=== PATIENT | female | born 2000 | race Caucasian/White ===

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

== ENCOUNTER 2020-01-05 11:55 | Inpatient (IN) | payer OTHER ==
--- OUTSIDE RECORDS SUMMARY | 2020-01-05 12:52 | XMS ---
:2000 Author Organization [facility] Support Name Relationship Address Phone UE Unavailable Unavailable Unavailable ANGELA Unavailable Unavailable Unavailable NATHAN CUMMINS MOTHER [address] [place] [address] NATHAN CUMMINS Mother [address] [place] [address] Re-disclosure Warning The records that you are about to access may contain information from federally- assisted alcohol or drug abuse programs. If such information is present, then the following federally mandated warning applies: This information has been disclosed to you from records protected by federal confidentiality rules (42 CFR part 2). The federal rules prohibit you from making any further disclosure of this information unless further disclosure is expressly permitted by the written consent of the person to whom it pertains or as otherwise permitted by 42 CFR part 2. A general authorization for the release of medical or other information is NOT sufficient for this purpose. The Federal rules restrict any use of the information to criminally investigate or prosecute any alcohol or drug abuse patient.The records that you are about to access may contain highly sensitive health information, the redisclosure of which is protected by Article 27-F of the [facility] Public Health law. If you continue you may haveaccess to information: Regarding HIV / AIDS; Provided by facilities licensed or operated by the [facility] Office of Mental Health; or Provided by the [facility] Office for People With Developmental Disabilities. If such information is present, then the following [facility] mandated warning applies: This information has been disclosed to you from confidential records which are protected by state law. State law prohibits you from making any further disclosure of this information without the specific written consent of the person to whom it pertains, or as otherwise permitted by law. Any unauthorized further disclosure in violation of state law may result in a fine or alf sentence or both. A general authorization for the release of medical or other information is NOT sufficient authorization for further disclosure. Insurance Providers Payer name Policy type Policy ID Covered Covered alliance party's Policy P radha / Coverage alliance party ID relationship to Pickering Inf ormation type pickering DWAINE [id number] 600 HEALTH NON CAP SELF PAY INSURANCE PENDING WC/NF [id number]
[2020-01-05] MEDS ORDERED: CITRIC ACID/SODIUM CITRATE 30 ML UNIT-DOSE CUP PO ONE (12:53)
[2020-01-05] MEDS ORDERED: ELECTROLYTE-148 SOLN 1,000 ML IV SCH (13:00)
--- NOTE | 2020-01-05 13:03 | HP ---
Past Medical History - Primary Care Physician PCP:: John Torres - Admission Chief Complaint: 35.5 weeks, twins PROM, labor History of Present Illness: 19 yo f 35.5 weeks twin gestation with prom since 4 am today, clear , cx 3 cm 70,, irregular contractions, twin a vx nitrazine positive , fhr cat 1 both twins History Source: Patient Limitations to Obtaining History: Language Barrier - Past Medical History ...: 1 ...Para: 0 ... Weeks Gestation by Dates: 35.5 ...EDC by Sono: 02/07/20 Infectious Disease: Yes: Other (uti) - Past Surgical History Hx Myomectomy: No Hx Transabdominal Cerclage: No - Smoking History Smoking history: Never smoked Have you smoked in the past 12 months: No - Alcohol/Substance Use Hx Alcohol Use: No - Social History Usual Living Arrangement: Yes: With Significant Other History of Recent Travel: No Home Medications - Allergies Allergies/Adverse Reactions: Allergies Allergy/AdvReac Type Severity Reaction Status Date / Time No Known Allergies Allergy Verified 09/14/19 19:49 - Home Medications Home Medications: Ambulatory Orders Nitrofurantoin Monohyd/M-Cryst [Macrobid -] 100 mg PO BID #14 capsule 06/09/19 Review of Systems - Review of Systems Constitutional: reports: No Symptoms Eyes: reports: No Symptoms HENT: reports: No Symptoms Neck: reports: No Symptoms Cardiovascular: reports: No Symptoms Respiratory: reports: No Symptoms Gastrointestinal: reports: No Symptoms Genitourinary: reports: No Symptoms Breasts: reports: No Symptoms Reported Musculoskeletal: reports: No Symptoms Integumentary: reports: No Symptoms Neurological: reports: No Symptoms Endocrine: reports: No Symptoms Hematology/Lymphatic: reports: No Symptoms Psychiatric: reports: No Symptoms Physical Exam - Maternity Constitutional: Yes: Well Nourished, No Distress, Calm Eyes: Yes: WNL, Conjunctiva Clear, EOM Intact HENT: Yes: WNL, Atraumatic, Normocephalic Neck: Yes: WNL, Supple, Trachea Midline Cardiovascular: Yes: WNL, Regular Rate and Rhythm Breast(s): Yes: WNL - Abdominal Exam/OB Fundal Height: 44 Number of Fetuses: Multiple Presentation: Vertex Contractions: Yes Regularity: Irregular Intensity: Moderate Monitor Mode: External Heart Rate Location: LUQ, RLQ Category: I Accelerations: Non-Uniform Decelerations: None - Vaginal Exam/OB Vaginal Bleeding: No Speculum Exam: No Dilatation (cm): 3 Effacement (%): 70 Amniotic Membrane Status: Ruptured Nitrazine Test: Positive Amniotic Fluid: Yes: Clear Presentation: Vertex/Position Station: -3 - Physical Exam Musculoskeletal: Yes: WNL Extremities: Yes: WNL Edema: Yes Edema: LLE: 1+, RLE: 1+ Deep Tendon Reflex Grade: Normal +2 Psychiatric: Yes: WNL Hemorrhage Risk Assessment - Risk Factors Medium Risk Factors: Yes: Multiple gestation Risk Score: 1 Risk Level: Medium Risk Problem List - Problems (1) with 35 completed weeks gestation Code(s): Z3A.35 - 35 WEEKS GESTATION OF (2) Twin gestation in third trimester Code(s): O30.003 - TWIN PREG, UNSP NUM PLCNTA & AMNIO SACS, THIRD TRIMESTER Qualifiers: Multiple gestation type: unspecified Qualified Code(s): O30.003 - Twin , unspecified number of placenta and unspecified number of amniotic sacs, third trimester (3) PROM (premature rupture of membranes) Code(s): O42.90 - VARINDER ROM, 7TH0 BETW RUPT & ONST LABR, UNSP WEEKS OF GEST Qualifiers: PROM onset of labor timing: onset of labor within 24 hours of rupture (4) High risk teen Code(s): O09.899 - SUPERVISION OF OTHER HIGH RISK PREGNANCIES, UNSP TRIMESTER Qualifiers: Trimester: third trimester Qualified Code(s): O09.893 - Supervision of other high risk pregnancies, third trimester Assessment/Plan admit twin a vx , twin b breech for c/s, risks explained , ulternatives explained for c/s
[2020-01-05 13:13] LABS: BASO % 0.9 % (0-2.0); EOS % 1.6 % (0-4.5); HEMATOCRIT 30.6 % (32.4-45.2); LYMPH % 28.7 % (8-40); MCH 27.1 pg (25.7-33.7); MCHC 32.7 g/dl (32.0-36.0); MEAN CELL VOLUME 82.8 fl (80-96); MONO % 6.2 % (3.8-10.2); NEUT % 62.6 % (42.8-82.8); PLATELET COUNT 219 K/MM3 (134-434); RDW 22.6 % (11.6-15.6); WHITE BLOOD COUNT 7.4 K/mm3 (4.0-10.0)
[2020-01-05 13:20] LABS: INR 0.85 (0.83-1.09)
[2020-01-05 13:23] LABS: ACTIVATED PTT 28.6 SECONDS (25.2-36.5)
[2020-01-05 13:37] VITALS: BMI 28.1
[2020-01-05 13:38] LABS: BLOOD UREA NITROGEN 9.8 mg/dL (7-18); CALCIUM 8.4 mg/dL (8.5-10.1); CREATININE 0.5 mg/dL (0.55-1.3); POTASSIUM 4.1 mmol/L (3.5-5.1)
[2020-01-05] MEDS ORDERED: morphine SULFATE/PF 0.5 MG/ML (2cc Syringe - QUVA) ONE (13:41)
[2020-01-05] MEDS ORDERED: PHENYLEPHRINE HCL 10 MG/1 ML SINGLE DOSE VIAL ONE ×2 (13:44→14:17)
[2020-01-05 14:01] LABS: ANISOCYTOSIS 3+; MACROCYTOSIS 1+; PLATELET ESTIMATE NORMAL
[2020-01-05] MEDS ORDERED: ALBUTEROL SO4 HFA INHALER IH ONE (14:15)
[2020-01-05] MEDS ORDERED: KETOROLAC TROMETHAMINE 30 MG/1 ML VIAL ONE (14:16)
[2020-01-05] MEDS ORDERED: SODIUM CHLORIDE 0.9% P/F 10 ML VIAL IJ ONE (14:16)
[2020-01-05] MEDS ORDERED: ceFAZolin SODIUM 1 GM VIAL ONE (14:16)
[2020-01-05] MEDS ORDERED: BENZOCAINE 20% 57 GM BOTTLE TP PRN (15:25)
[2020-01-05] MEDS ORDERED: BENZOCAINE 28 GM HEMORRHOIDAL OINTMENT PR PRN (15:25)
[2020-01-05] MEDS ORDERED: oxyCODONE HCL 5 MG TABLET PO PRN ×2 (15:25)
[2020-01-05] MEDS ORDERED: METHYLERGONOVINE MALEATE 0.2 MG/1 ML AMP IM PRN (15:25)
[2020-01-05] MEDS ORDERED: IBUPROFEN 800 MG/8 ML IJ IVPB PRN (15:25)
[2020-01-05] MEDS ORDERED: diphenhydrAMINE HCL 25 MG CAPSULE (FP) PO PRN (15:25)
[2020-01-05] MEDS ORDERED: WITCH HAZEL 50% (TUCKS) 40 PAD/JAR PAD TP PRN (15:25)
[2020-01-05] MEDS ORDERED: ONDANSETRON 4 MG/2 ML VIAL IVPUSH PRN (15:28)
[2020-01-05] MEDS ORDERED: morphine SULFATE/PF 0.5 MG/ML (2cc Syringe - QUVA) EP ONE (15:28)
[2020-01-05] MEDS ORDERED: ACETAMINOPHEN 1000 MG/100 ML VIAL (NON FORMULARY) IVPB ONE (15:29)
[2020-01-05] MEDS: DEXTROSE 5%-LACTATED RINGERS 1,000 ML IV SCH (15:30)
[2020-01-05] MEDS ORDERED: OXYTOCIN 20 UNITS in 0.9% NS 20 UNITS/1,000 ML INFUS.BAG IV SCH (15:30)
--- NOTE | 2020-01-05 15:31 | OP ---
Operative Note - Note: Operative Date: 01/05/20 Pre-Operative Diagnosis: nmagvayof84.5 weeks, prom, twins , labor twin b transverse Operation: primary LST c/s Findings: twin a vx , cord around neck , twin B transverse , cord around neck Surgeon: John Torres Anesthesia: Spinal Specimens Removed: placenta Estimated Blood Loss (mls): 700 Drains & Tubes with Location: gallegos Blood Volume Replaced (mls): 0 Operative Report Dictated: Yes
[2020-01-05 17:25] LABS: CORD BASE EXCESS -4.9 mmol/L (0-2); CORD HCO3 21.7 mmHg (20-29); CORD PCO2 45.9 mmHg (30-78); CORD pH 7.292 (7.14-7.44)
[2020-01-05 17:46] LABS: CORD BASE EXCESS -6.8 mmol/L (0-2); CORD HCO3 18.8 mmHg (20-29); CORD PCO2 38.3 mmHg (30-78); CORD pH 7.309 (7.14-7.44)
[2020-01-05 18:00] LABS: CORD BASE EXCESS -5.9 mmol/L (0-2); CORD HCO3 20.8 mmHg (20-29); CORD PCO2 44.9 mmHg (30-78); CORD pH 7.283 (7.14-7.44)
[2020-01-05] MEDS: CEFAZOLIN 1 GM/D5W 1 GM/50 ML BAG IVPB SCH (22:38)
[2020-01-06] MEDS: CEFAZOLIN 1 GM/D5W 1 GM/50 ML BAG IVPB SCH (06:22)
[2020-01-06] MEDS: DEXTROSE 5%-LACTATED RINGERS 1,000 ML IV SCH (06:23)
[2020-01-06 08:24] LABS: BASO % 0.3 % (0-2.0); EOS % 0.1 % (0-4.5); HEMATOCRIT 24.1 % (32.4-45.2); LYMPH % 27.5 % (8-40); MCHC 33.3 g/dl (32.0-36.0); MEAN PLT VOLUME 8.6 fl (7.5-11.1); MONO % 6.7 % (3.8-10.2); NEUT % 65.4 % (42.8-82.8); PLATELET COUNT 191 K/MM3 (134-434); RBC 2.87 M/mm3 (3.60-5.2); RDW 23.5 % (11.6-15.6); WHITE BLOOD COUNT 9.2 K/mm3 (4.0-10.0)
[2020-01-06] MEDS: ENOXAPARIN NA (PORCINE) 40 MG/0.4 ML DISP.SYRIN SQ SCH (10:59)
[2020-01-06] MEDS: SIMETHICONE 80 MG TAB.CHEW (FP) PO PRN ×2 (10:59→21:19)
[2020-01-06] MEDS: IBUPROFEN 600 MG TABLET (FP) PO PRN ×2 (13:53→21:18)
[2020-01-06] MEDS ORDERED: BISACODYL 10 MG SUPP.RECT PR PRN (15:25)
--- NOTE | 2020-01-06 17:33 | PN ---
Progress Note (short form) - Note Progress Note: pod 1 doing well, ambulating , voids ok, no dizziness CBC, BMP 01/06/20 07:42 01/05/20 12:50 Last Vital Signs Temp Pulse Resp BP Pulse Ox 98.3 F 94 H 18 114/78 98 01/06/20 10:00 01/06/20 10:00 01/06/20 15:00 01/06/20 10:00 01/05/20 21:00 abdomen soft ,no distension, no cva BS are present incison dry, clean no calf tenderness impression pod 1,doing well anemia ,asymptomatic plan advised iron, DVT prophylaxsis Problem List - Problems (1) with 35 completed weeks gestation Code(s): Z3A.35 - 35 WEEKS GESTATION OF (2) Twin gestation in third trimester Code(s): O30.003 - TWIN PREG, UNSP NUM PLCNTA & AMNIO SACS, THIRD TRIMESTER Qualifiers: Multiple gestation type: unspecified Qualified Code(s): O30.003 - Twin , unspecified number of placenta and unspecified number of amniotic sacs, third trimester (3) PROM (premature rupture of membranes) Code(s): O42.90 - VARINDER ROM, 7TH0 BETW RUPT & ONST LABR, UNSP WEEKS OF GEST Qualifiers: PROM onset of labor timing: onset of labor within 24 hours of rupture (4) High risk teen Code(s): O09.899 - SUPERVISION OF OTHER HIGH RISK PREGNANCIES, UNSP TRIMESTER Qualifiers: Trimester: third trimester Qualified Code(s): O09.893 - Supervision of other high risk pregnancies, third trimester
[2020-01-06] MEDS ORDERED: ACETAMINOPHEN 325 MG TABLET (FP) ONE (21:14)
[2020-01-06] MEDS: ACETAMINOPHEN 325 MG TABLET (FP) PO PRN (21:35)
--- NOTE | 2020-01-07 07:47 | PN ---
Progress Note (short form) - Note Progress Note: pod 2 doing well, ambulating CBC, BMP 01/06/20 07:42 01/05/20 12:50 Last Vital Signs Temp Pulse Resp BP Pulse Ox 98.6 F 92 H 18 107/72 98 01/06/20 22:00 01/06/20 22:00 01/06/20 22:00 01/06/20 22:00 01/05/20 21:00 abdomen soft, no distension, no cva uterus firm lochia mild no calf tenderness plan ambulate cbc in am iron ,vit Problem List - Problems (1) with 35 completed weeks gestation Code(s): Z3A.35 - 35 WEEKS GESTATION OF (2) Twin gestation in third trimester Code(s): O30.003 - TWIN PREG, UNSP NUM PLCNTA & AMNIO SACS, THIRD TRIMESTER Qualifiers: Multiple gestation type: unspecified Qualified Code(s): O30.003 - Twin , unspecified number of placenta and unspecified number of amniotic sacs, third trimester (3) PROM (premature rupture of membranes) Code(s): O42.90 - VARINDER ROM, 7TH0 BETW RUPT & ONST LABR, UNSP WEEKS OF GEST Qualifiers: PROM onset of labor timing: onset of labor within 24 hours of rupture (4) High risk teen Code(s): O09.899 - SUPERVISION OF OTHER HIGH RISK PREGNANCIES, UNSP TRIMESTER Qualifiers: Trimester: third trimester Qualified Code(s): O09.893 - Supervision of other high risk pregnancies, third trimester
[2020-01-07] MEDS: ENOXAPARIN NA (PORCINE) 40 MG/0.4 ML DISP.SYRIN SQ SCH (09:33)
--- NOTE | 2020-01-07 12:30 | OP ---
DATE OF OPERATION: 01/05/2020 PREOPERATIVE DIAGNOSIS: at 35.5 weeks gestation, premature rupture of membrane twins; twin B transverse. POSTOPERATIVE DIAGNOSIS: at 35.5 weeks gestation, premature rupture of membrane twins; twin B transverse. PROCEDURE: Primary low segment transverse section. SURGEON: John Torres MD EVENT MANAGEMENT CONSULTANT: Andrés Prince MD ANESTHESIA: Spinal. ESTIMATED BLOOD LOSS: 700 mL FINDING: Twin A vertex, cord around the neck. Twin B transverse, delivered vertex, cord around the neck x1. OPERATIVE REPORT: Patient was taken to the operating room. Under adequate spinal anesthesia abdomen and perineum were prepped and draped. Pfannenstiel abdominal skin incision was made. Abdominal wall was cut layer by layer until peritoneum was exposed and incised. Upon entering the abdominal cavity lower uterine segment was identified and uterovesical fold of peritoneum established. Bladder was pushed down. Then with the low blade of the [place] retractor in the pelvis, a low transverse uterine incision was made. This incision extended laterally with bandage scissors. Amniotic sac was entered. Twin A vertex, cord around the neck x1 reduced and the baby delivered without any difficulty. Cord blood was obtained and cord gases also were obtained for twin A. Twin B amniotic sac was entered. It was transverse, delivered as a vertex, had a cord around the neck x1 which was reduced prior to delivery of the head. Also twin B cord blood was obtained and cord gases were obtained. Then placenta was delivered manually. Uterine cavity was cleaned of all remaining tissue. Uterine incision was closed in 2 layers, first layer with 0 Biosyn continuous suture, the second layer with 0 Biosyn imbricating the first layer. Bladder flap was closed with 0 Biosyn continuous suture. Both tubes and ovaries were checked and normal. No active bleeding was seen. All the lap pads, sponge counts, instrument counts were correct. Peritoneum was closed with 0 Biosyn continuous suture. Muscles were brought together with interrupted suture of 0 Biosyn. Fascia was closed with 0 Biosyn continuous suture, subcutaneous fat interrupted suture of 0 Biosyn, and skin was closed with pollo. Patient tolerated procedure well, left the OR in good condition. Grant [id number]
[2020-01-07 14:18] LABS: POC NITRAZINE POS
[2020-01-07] MEDS ORDERED: SENNOSIDES/DOCUSATE COMBO (SENNA PLUS) TABLET (UD) PO PRN (22:00)
[2020-01-07] MEDS: ACETAMINOPHEN 325 MG TABLET (FP) PO PRN (23:55)
[2020-01-07] MEDS: IBUPROFEN 600 MG TABLET (FP) PO PRN (23:55)
[2020-01-07] MEDS: SIMETHICONE 80 MG TAB.CHEW (FP) PO PRN (23:55)
--- NOTE | 2020-01-08 06:45 | PN ---
Post Progress Note - Subjective Subjective: Ambulating, tolerating PO, no N/V, lochia decreased, desiring to stay an extra day due to twins in center Post Day: 3 Type of Delivery: Primary C/S Vital Signs: Vital Signs Temperature 98.0 F 01/07/20 22:00 Pulse Rate 71 01/07/20 22:00 Respiratory Rate 18 01/07/20 22:00 Blood Pressure 138/88 01/07/20 22:00 O2 Sat by Pulse Oximetry (%) 98 01/05/20 21:00 Breast Exam: Yes: Other Uterus: Yes: Fundus Firm Incision: Yes: Dressing dry and intact, [place] intact Abdomen/GI: Yes: Abdomen soft Lochia, amount: Moderate Extremities: Yes: Calves non-tender Perineum: Yes: Intact Activity: Ambulating - Labs Labs: CBC WBC 9.2 K/mm3 (4.0-10.0) 01/06/20 07:42 RBC 2.87 M/mm3 (3.60-5.2) L 01/06/20 07:42 Hgb 8.0 GM/dL (10.7-15.3) L 01/06/20 07:42 Hct 24.1 % (32.4-45.2) L D 01/06/20 07:42 MCV 84.0 fl (80-96) 01/06/20 07:42 MCH 28.0 pg (25.7-33.7) 01/06/20 07:42 MCHC 33.3 g/dl (32.0-36.0) 01/06/20 07:42 RDW 23.5 % (11.6-15.6) H 01/06/20 07:42 Plt Count 191 K/MM3 (134-434) 01/06/20 07:42 MPV 8.6 fl (7.5-11.1) 01/06/20 07:42 Absolute Neuts (auto) 6.0 K/mm3 (1.5-8.0) 01/06/20 07:42 Neutrophils % 65.4 % (42.8-82.8) 01/06/20 07:42 Lymphocytes % 27.5 % (8-40) 01/06/20 07:42 Monocytes % 6.7 % (3.8-10.2) 01/06/20 07:42 Eosinophils % 0.1 % (0-4.5) D 01/06/20 07:42 Basophils % 0.3 % (0-2.0) 01/06/20 07:42 Nucleated RBC % 0 % (0-0) 01/06/20 07:42 Hypochromia 0 01/05/20 12:50 Platelet Estimate Normal 01/05/20 12:50 Polychromasia 0 01/05/20 12:50 Poikilocytosis 0 01/05/20 12:50 Anisocytosis 3+ 01/05/20 12:50 Microcytosis 2+ 01/05/20 12:50 Macrocytosis 1+ 01/05/20 12:50 Assessment/Plan 19 y/o on POD # 3 S/P PLTCS for twins in stable condition, desiring to stay an extra day -Continue PP/post-op care -Anticipate D/C home tomorrow -F/U AM CBC
[2020-01-08 08:14] LABS: BASO % 0.4 % (0-2.0); HEMATOCRIT 24.7 % (32.4-45.2); HEMOGLOBIN 8.3 GM/dL (10.7-15.3); LYMPH % 23.5 % (8-40); MCH 28.4 pg (25.7-33.7); MCHC 33.5 g/dl (32.0-36.0); MEAN CELL VOLUME 84.8 fl (80-96); MEAN PLT VOLUME 7.9 fl (7.5-11.1); MONO % 4.9 % (3.8-10.2); NEUT % 69.2 % (42.8-82.8); PLATELET COUNT 247 K/MM3 (134-434); RBC 2.91 M/mm3 (3.60-5.2); RDW 23.5 % (11.6-15.6); WHITE BLOOD COUNT 8.7 K/mm3 (4.0-10.0)
[2020-01-08] MEDS: ENOXAPARIN NA (PORCINE) 40 MG/0.4 ML DISP.SYRIN SQ SCH (10:33)
[2020-01-08] MEDS: SIMETHICONE 80 MG TAB.CHEW (FP) PO PRN (13:50)
[2020-01-08] MEDS: IBUPROFEN 600 MG TABLET (FP) PO PRN (13:50)
[2020-01-08] MEDS: ACETAMINOPHEN 325 MG TABLET (FP) PO PRN (13:51)
--- NOTE | 2020-01-09 08:07 | DS ---
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 No: CVA Tenderness - Right ....Post : Yes: Uterus firm, Uterus non-tender, Moderate lochia rubra Breast(s): Yes: WNL (breast full but not engorged) Musculoskeletal: Yes: WNL Extremities: Yes: WNL. No: Calf Tenderness Edema: No Wound/Incision: Yes: Clean/Dry, Well Approximated, Steri Strips, Open to air, [place] Removed. No: Draining, Reddened, Bleeding Neurological: Yes: WNL, Alert, Oriented ...Motor Strength: WNL Psychiatric: Yes: WNL, Alert, Oriented Labs: CBC, BMP 01/08/20 07:43 01/05/20 12:50 Delivery - Delivery Type of Anesthesia: Spinal Episiotomy/Laceration: None EBL (cc): 700 Delivery, Single - [place] Feeding Plan Initial Plan: Elected not to breastfeed exclusively throughout hospitalization Delivery, Multiple Births - Stages of Labor Delivery Baby "A" Date: 01/05/20 Time: 14:30 Placenta/Membranes "A" Date: 01/05/20 Time: 14:33 Delivery Baby "B" Date: 01/05/20 Time: 14:32 Placenta/Membranes "B" Date: 01/05/20 Time: 14:33 - Condition of Multiple Births [place] 1 (A) Non Garment Sewing Machine Operator/Kinesiotherapist Present: Yes Non Garment Sewing Machine Operator: Nury Diana Infant Gender: Male Weight: 4 lb 15 oz Position: Right, OT Total Hours ROM (HRS/MINS): 10H33M 2 (B) Non Garment Sewing Machine Operator/Kinesiotherapist Present: Yes Gender: Male Weight: 5 lb Total Hours ROM (HRS/MINS): 10H33M - [place] 1 (A) 1 Minute Score: 9 [place] 1 (A) 5 Minutes Score: 9 [place] 2 (B) 1 Minute Score: 8 [place] 2 (B) 5 Minutes Score: 8 Remarks - Remarks Remarks: s/p primary c/section post op day #4 stable hemodynamically twins not discharged , in NICU pt counselled about anemia discharge today . f/u with Dr Torres in 1 week Discharge Summary Problems reviewed: Yes Reason For Visit: LABOR ADMIT Current Active Problems High risk teen (Acute) PROM (premature rupture of membranes) (Acute) with 35 completed weeks gestation (Acute) Twin gestation in third trimester (Acute) Condition: Good - Instructions Diet, Activity, Other Instructions: regular diet, no intercourse , if fever ,pain, heavy vaginal bleeding call MD follow up [facility] 4 weeks iron and vit Referrals: John Torres MD [Staff Physician] - Disposition: HOME - Home Medications Comprehensive Discharge Medication List: Ambulatory Orders Ibuprofen [Motrin -] 600 mg PO TID #21 tablet 01/06/20 Miscellaneous Medical Supply [Breast Pump, Electronic] 1 each NR ASDIR #1 unit 01/06/20 Acetaminophen [Tylenol .Regular Strength -] 500 mg PO Q4H PRN #30 tablet 01/09/20 Ferrous Sulfate [Feosol] 325 mg PO BID #60 tablet 01/09/20 105/Iron/Folic AC/Dha [Prena1 True Combo Pack] 1 each PO DAILY #30 combo..pkg 01/09/20 Sennosides/Docusate Sodium [Pericolace -] 1 tablet PO HS PRN #30 tablet 01/09/20
[2020-01-09 09:13] VITALS: BP 117/85; PULSE 82; TEMP 98
[2020-01-09] MEDS: ENOXAPARIN NA (PORCINE) 40 MG/0.4 ML DISP.SYRIN SQ SCH (10:15)
--- NOTE | 2020-01-09 17:26 | PATH ---
Surgical Pathology Report Patient Name: JAREK SMITH Med. Rec. #: [id number] /Age/Gender: 2000 (Age: 19) / F Account: [id number] Location: [facility] OBS/MANAGED SECURITY SALES CONSULTANT Taken: 01/05/2020 Received: 01/07/2020 Reported: 01/09/2020 Physicians: John Torres M.D. Specimen(s) Received PLACENTA Clinical History , 35.5 weeks twin gestation Final Diagnosis PLACENTA, SECTION: 590 G DIAMNIOTIC DICHORIONIC FUSED DISC TWIN PLACENTA. PLACENTA A, THIRD TRIMESTER PLACENTA, TRIVASCULAR UMBILICAL CORD WITH VELAMENTOUS INSERTION, AND UNREMARKABLE PLACENTAL MEMBRANES. PLACENTA B, THIRD TRIMESTER PLACENTA, TRIVASCULAR UMBILICAL CORD WITH VELAMENTOUS INSERTION, AND UNREMARKABLE PLACENTAL MEMBRANES. Electronically Signed Vandana Gamez M.D. Gross Description Received in formalin labeled "placenta," is a twin placenta comprised of two fused disc, by dividing membranes. There is a 1 clamp marking the umbilical cord of arbitrarily designated placenta "A" and 2 clamps marking the umbilical cord of arbitrarily designated placenta "B". The specimen is 590 g and 18.0 x 17.5 x 2.7 cm. The membranes are jefferson, translucent with focal opacities and insert marginally. The umbilical cord of placenta "A" is 18 cm in length and averages 1.2 cm in diameter. The umbilical cord of placenta "A" inserts velamentously into the dividing membranes. No true knots or strictures are identified. The cut surface of the umbilical cord reveals 3 vessels. The umbilical cord of placenta "B" is 5 cm in length and averages 1.1 cm in diameter. The cord inserts velamentously into the membranes of placenta "B". No true knots or strictures are identified. The cut surface of the umbilical cord reveals 3 vessels. The surface is odom blue with minimal fibrin deposition and appropriate caliber vessels. Sectioning reveals red-brown, spongy parenchyma. No lesions are identified. Apparel Pattern Maker sections are submitted in 7 cassettes as follows: 1-placenta "A" membrane roll and umbilical cord; 8-5-civt-thickness sections of placenta "A"; 4-dividing membranes; 5-placenta "B" membrane roll and umbilical cord; 2-9-idoh-thickness sections of placenta "B". 01/08/[address] [facility]01/08/2020
== END 2020-01-09 13:05 | disposition home or self-care (01) | DRG 540 ==
LOC: JLDR 11:55 → J3W 20:15
PROVIDERS: ADMIT Obstetrics & Gynecology; ATTEND Obstetrics & Gynecology
PROC: 10D00Z1 Extraction of Products of Conception, Low, Open Approach (ICD-10-PCS; principal; 2020-01-05)
DX: O82 Encounter for cesarean delivery without indication (principal); O30.003 Twin pregnancy, unspecified number of placenta and unspecified number of amniotic sacs, third trimester; Z37.2 Twins, both liveborn; O42.013 Preterm premature rupture of membranes, onset of labor within 24 hours of rupture, third trimester; O69.81X1 Labor and delivery complicated by cord around neck, without compression, fetus 1; O69.81X2 Labor and delivery complicated by cord around neck, without compression, fetus 2; O90.81 Anemia of the puerperium; D64.9 Anemia, unspecified; Z3A.35 35 weeks gestation of pregnancy
CPT/HCPCS: 36415; 36600; 80048; 82803; 83986-QW; 85025; 85610; 85730; 86780; 86850; 86900; 86901; 87389; 88307-TC; C9803; U0003